=== PATIENT | female | born 1980 | race Caucasian/White ===

== ENCOUNTER 2016-12-04 15:06 | Emergency (ER) | payer MEDICARE ==
[~2016-12-04] VITALS: Ht 157.5 cm; Wt 117.9 kg
[~2016-12-04 15:06] MED LIST: ABILIFY10 MG PO; ATIVAN1 M1 PO; BUSPAR10 M1 PO; BUSPIRONE HYDRO30 MG PO; CYMBALTA60 MG PO; EFFEXOR-XR150 MG PO; ESKALITH300 M3 PO; LATUDA40 MG PO; LITHIUM CARBON450 M1 PO; NAPROSYN500 M1 PO; NEXIUM40 MG PO; PAMELOR10 MG PO; SOMA350 MG PO
[2016-12-04 15:57] VITALS: BP 120/83
--- NOTE | 2016-12-04 19:20 | NUR ---
PATIENT LEFT WITHOUT BEING SEEN BY DR. GARCIA. NO FURTHER CARE PROVIDED FOR PATIENT.
== END 2016-12-04 19:20 | disposition left against medical advice (07) ==
LOC: MED 15:06
DX: R05 Cough (principal); Z53.21 Procedure and treatment not carried out due to patient leaving prior to being seen by health care provider

== ENCOUNTER 2017-07-11 17:47 | Emergency (ER) | payer MEDICARE ==
[~2017-07-11] VITALS: Ht 160 cm; Wt 117.9 kg
[~2017-07-11 17:47] MED LIST changes: -ABILIFY10 MG PO; +ARIP10TA28 PO; -ATIVAN1 M1 PO; -BUSPAR10 M1 PO; -BUSPIRONE HYDRO30 MG PO; +CARI350T PO; -CYMBALTA60 MG PO; -EFFEXOR-XR150 MG PO; +ESK300 PO; -ESKALITH300 M3 PO; +ESOM40EC PO; -LATUDA40 MG PO; -LITHIUM CARBON450 M1 PO; +NAPR500T1 PO; -NAPROSYN500 M1 PO; -NEXIUM40 MG PO; -PAMELOR10 MG PO; -SOMA350 MG PO; +VENL150C1 PO
[2017-07-11 19:28] VITALS: BP 128/68
--- NOTE | 2017-07-11 19:46 | NUR ---
PT TAKEN TO BED 7
--- NOTE | 2017-07-11 19:46 | NUR ---
37 Y/O F W/C/O ABNORMAL VAGINAL BLEEDING, AND PELVIC PAIN X 3 DAYS. HX. BIPOLAR, ANXIETY, DEPRESSION. NO OTHER S/S OF DISTRESS NOTED AT THE MOMENT.
--- NOTE | 2017-07-11 20:18 | NUR ---
Dr. Ramon evaluating patient at bedside.
[2017-07-11 20:47] LABS: BASOPHILS # (AUTO) 0.2 K/uL (0.00-0.22); BASOPHILS % (AUTO) 1.9 % (0.0-2.0); EOSINOPHILS # (AUTO) 0.3 K/uL (0-0.4); EOSINOPHILS % (AUTO) 3.4 % (0.0-4.0); HEMATOCRIT 37.6 % (36-48); HEMOGLOBIN 12.1 g/dL (12.0-16.0); LYMPHOCYTES # (AUTO) 2.8 K/uL (2.5-16.5); LYMPHOCYTES % (AUTO) 30.8 % (20.5-51.1); MEAN CORPUSCULAR HEMOGLOBIN 28 pg (27-31); MEAN CORPUSCULAR HGB CONC 32 g/dL (33-37); MEAN CORPUSCULAR VOLUME 88 fL (80-94); MONOCYTES # (AUTO) 0.7 K/uL (0.8-1.0); MONOCYTES % (AUTO) 7.5 % (1.7-9.3); NEUTROPHILS # (AUTO) 5.1 K/uL (1.8-7.7); NEUTROPHILS % (AUTO) 56.4 % (42.2-75.2); PLATELET COUNT (AUTO) 272 K/uL (140-450); RED BLOOD CELL COUNT(AUTO) 4.27 MIL/uL (4.20-5.40); RED CELL DISTRIBUTION WIDTH 13.3 % (11.6-13.7); WHITE BLOOD COUNT (AUTO) 9.1 K/uL (4.8-10.8)
[2017-07-11] MEDS ORDERED: KETOROLAC 60 MG/2 ML VIAL IM ONE (20:50)
[2017-07-11 21:00] LABS: ANION GAP 13.3 (8-16); CARBON DIOXIDE 27.6 mmol/L (21-32); CREATININE 0.9 mg/dL (0.6-1.3); POTASSIUM 3.9 mmol/L (3.5-5.1)
[2017-07-11 21:03] LABS: PROTHROMBIN TIME 10.4 secs (10.8-13.4)
[2017-07-11 21:05] LABS: TOTAL BILIRUBIN 0.4 mg/dL (0.0-1.0)
--- NOTE | 2017-07-11 21:10 | NUR ---
PT RESTING IN BED, AWATING FOR RESULTS, NO S/S OF DISTRESS NOTED AT THE MOMENT.
[2017-07-11 21:59] VITALS: BP 116/84
--- NOTE | 2017-07-11 21:59 | NUR ---
Patient discharged with v/s stable. Written and verbal after care instructions given and explained. Patient alert, oriented and verbalized understanding of instructions. Ambulatory with steady gait. All questions addressed prior to discharge. ID band removed. Patient advised to follow up with PMD IN 2-3 DAYS OR RETURN TO ER IF CONDITION WORSENS. Rx of NAPROSYN given. Patient educated on indication of medication including possible reaction and side effects. Opportunity to ask questions provided and answered.
== END 2017-07-11 21:59 | disposition home or self-care (01) ==
LOC: MED 17:47
DX: N92.0 Excessive and frequent menstruation with regular cycle (principal); J45.909 Unspecified asthma, uncomplicated; F41.9 Anxiety disorder, unspecified; Z79.899 Other long term (current) drug therapy; Z88.8 Allergy status to other drugs, medicaments and biological substances; Z91.013 Allergy to seafood
CPT/HCPCS: 36415; 80053; 81025; 85025; 85610; 85730; 96372; 99284; J1885

== ENCOUNTER 2017-11-30 20:02 | Emergency (ER) | payer MEDICARE ==
[~2017-11-30] VITALS: Ht 160 cm; Wt 113.4 kg
[~2017-11-30 20:02] MED LIST changes: +ABI10 PO; -ARIP10TA28 PO; +NAPR-1717 PO; -NAPR500T1 PO
[2017-11-30 20:08] VITALS: BP 142/78
--- NOTE | 2017-11-30 20:20 | NUR ---
TO ER BED 4
--- NOTE | 2017-11-30 20:22 | NUR ---
PT IS A 37 Y/O FEMALE WHO PRESENTS TO THE ED C/O CHEST PAIN. PT STATES, "MY CHEST HAS BEEN HURTING SINCE MONDAY." PT REPORTS 6/10 ACHING CHEST PAIN THAT DOES NOT RADIATE. PT DENIES SOB, REPORTS DIARRHEA DENIES NAUSEA/VOMITING, REPORTS DIZZINESS. PT AAOX4, RR EVEN/UNLABORED. PT REPOSITIONED FOR COMFORT, BED IN LOWEST POSITION. ER MD DUCKWORTH SECCASSY NOTIFIED. WILL CONTINUE TO MONITOR.
[2017-11-30] MEDS ORDERED: ASPIRIN 81 MG TAB.CHEW PO ONE (21:10)
[2017-11-30 21:34] LABS: ANION GAP 8.7 (8-16); BASOPHILS # (AUTO) 0.5 K/uL (0.00-0.22); BASOPHILS % (AUTO) 4.2 % (0.0-2.0); CARBON DIOXIDE 30.6 mmol/L (21-32); CREATININE 0.9 mg/dL (0.6-1.3); EOSINOPHILS # (AUTO) 0.2 K/uL (0-0.4); EOSINOPHILS % (AUTO) 1.9 % (0.0-4.0); HEMATOCRIT 35.2 % (36-48); HEMOGLOBIN 11.8 g/dL (12.0-16.0); LYMPHOCYTES # (AUTO) 2.7 K/uL (2.5-16.5); LYMPHOCYTES % (AUTO) 24.7 % (20.5-51.1); MEAN CORPUSCULAR HEMOGLOBIN 29 pg (27-31); MEAN CORPUSCULAR HGB CONC 34 g/dL (33-37); MEAN CORPUSCULAR VOLUME 86 fL (80-94); MONOCYTES # (AUTO) 1.2 K/uL (0.8-1.0); MONOCYTES % (AUTO) 10.9 % (1.7-9.3); NEUTROPHILS # (AUTO) 6.2 K/uL (1.8-7.7); NEUTROPHILS % (AUTO) 58.3 % (42.2-75.2); PLATELET COUNT (AUTO) 263 K/uL (140-450); POTASSIUM 4.3 mmol/L (3.5-5.1); RED CELL DISTRIBUTION WIDTH 13.2 % (11.6-13.7); WHITE BLOOD COUNT (AUTO) 10.8 K/uL (4.8-10.8)
[2017-11-30 21:41] LABS: ALBUMIN 3.5 g/dL (3.4-5.0); TOTAL BILIRUBIN 0.3 mg/dL (0.0-1.0)
[2017-11-30 22:11] VITALS: BP 139/82
--- NOTE | 2017-11-30 22:11 | NUR ---
Patient discharged with v/s stable. Written and verbal after care instructions given and explained. Patient verbalized understanding. Ambulatory with steady gait. All questions addressed prior to discharge. Advised to follow up with PMD.
== END 2017-11-30 22:11 | disposition home or self-care (01) ==
LOC: MED 20:02
DX: R07.9 Chest pain, unspecified (principal); F31.9 Bipolar disorder, unspecified; J45.909 Unspecified asthma, uncomplicated; F17.210 Nicotine dependence, cigarettes, uncomplicated; Z91.013 Allergy to seafood
CPT/HCPCS: 36415; 71045; 80053; 81002; 81025; 83690; 84484; 84703; 85025; 85379; 93005; 99285

== ENCOUNTER 2017-12-08 09:54 | Emergency (ER) | payer MEDICARE ==
[~2017-12-08] VITALS: Ht 157.5 cm; Wt 119.7 kg
[~2017-12-08 09:54] MED LIST changes: -VENL150C1 PO
[2017-12-08 09:58] VITALS: BP 113/53
[2017-12-08] MEDS ORDERED: BENZTROPINE MES 1 MG TABLET (10:05)
[2017-12-08] MEDS ORDERED: CLONAZEPAM 0.5 MG TABLET (10:05)
[2017-12-08] MEDS ORDERED: BUSP10TA3 PO (10:05)
[2017-12-08] MEDS ORDERED: VENL150C1 PO (10:05)
[2017-12-08] MEDS ORDERED: LORATADINE 10 MG TABLET (10:05)
--- NOTE | 2017-12-08 10:30 | NUR ---
PT TO OF 1, UNIT UNABLE TO PROVIDE BED FOR PT. PT REPORTS INTERMITTENT CHEST PAIN X 2 WEEKS, PROGRESSIVELY GETTING WORSE. PT WAS SEEN HERE 2 WEEKS AGO AND DISCHARGED. PT REPORTS HX OF DEPRSSION AND ANXIETY WITH BIPOLAR. STATES SHE'S BEEN EXPERIENCING INCREASED STRESS WITH OLDER DTR. DENIES ANY RADIATING PAINOR NUMBNESS/TINGLING. PT SPEAKING IN FUL CLEAR SENTENCES, ALTHOUGH REPORTS SHORTNESS OF BREATH. SKI W/D/I, IN NAD. RESP EVENA ND UNALBORED, ON RA@99%. DENIES ANY FEVERS/CHILLS. SL IV INSERTED TO LEFT AC, BLOOD COLLECTED.
[2017-12-08] MEDS ORDERED: KETOROLAC 30 MG/ML VIAL IVP ONE (11:00)
[2017-12-08] MEDS ORDERED: LORazepam 2 MG/ML VIAL IVP ONE (11:00)
[2017-12-08] MEDS ORDERED: ASPIRIN 81 MG TAB.CHEW PO ONE (11:00)
[2017-12-08 11:33] LABS: BASOPHILS # (AUTO) 0.4 K/uL (0.00-0.22); BASOPHILS % (AUTO) 3.6 % (0.0-2.0); CARBON DIOXIDE 28.2 mmol/L (21-32); CREATININE 0.7 mg/dL (0.6-1.3); EOSINOPHILS # (AUTO) 0.3 K/uL (0-0.4); EOSINOPHILS % (AUTO) 2.7 % (0.0-4.0); HEMATOCRIT 35.9 % (36-48); HEMOGLOBIN 12.4 g/dL (12.0-16.0); LYMPHOCYTES # (AUTO) 2.7 K/uL (2.5-16.5); LYMPHOCYTES % (AUTO) 24.9 % (20.5-51.1); MEAN CORPUSCULAR HEMOGLOBIN 29 pg (27-31); MEAN CORPUSCULAR HGB CONC 35 g/dL (33-37); MEAN CORPUSCULAR VOLUME 85 fL (80-94); MONOCYTES # (AUTO) 1.2 K/uL (0.8-1.0); MONOCYTES % (AUTO) 11.1 % (1.7-9.3); NEUTROPHILS # (AUTO) 6.1 K/uL (1.8-7.7); NEUTROPHILS % (AUTO) 57.7 % (42.2-75.2); PLATELET COUNT (AUTO) 258 K/uL (140-450); POTASSIUM 4.2 mmol/L (3.5-5.1); RED BLOOD CELL COUNT(AUTO) 4.23 MIL/uL (4.20-5.40); RED CELL DISTRIBUTION WIDTH 13.4 % (11.6-13.7); WHITE BLOOD COUNT (AUTO) 10.7 K/uL (4.8-10.8)
[2017-12-08 11:33] LABS: BARBITURATE, URINE NEG. ng/ml (NEG <=200); BENZODIAZEPINE, URINE NEG. ng/mL (NEG <=200); CANNABINOID, URINE NEG. ng/mL (NEG <=50); COCAINE, URINE NEG. ng/mL (NEG <=300); OPIATE, URINE NEG. ng/mL (NEG <=2000); PHENCYCLIDINE SCREEN,URINE NEG. ng/mL (NEG <=25)
[2017-12-08 11:41] LABS: ALBUMIN 3.8 g/dL (3.4-5.0); TOTAL BILIRUBIN 0.5 mg/dL (0.0-1.0)
[2017-12-08 12:03] LABS: PROTHROMBIN TIME 10.5 secs (10.8-13.4)
--- NOTE | 2017-12-08 12:12 | NUR ---
pt reports feeling better, resp even and unlbaored. denies any cp or sob at this time.
[2017-12-08 12:16] LABS: D-DIMER < 100 ng/ml (0-400)
[2017-12-08 12:54] VITALS: BP 127/82
--- NOTE | 2017-12-08 12:54 | NUR ---
Patient discharged with v/s stable. Written and verbal after care instructions given and explained. Patient alert, oriented and verbalized understanding of instructions. Ambulatory with steady gait. All questions addressed prior to discharge. ID band removed. Patient advised to follow up with PMD. Rx of VISTARIL given. Patient educated on indication of medication including possible reaction and side effects. Opportunity to ask questions provided and answered.
== END 2017-12-08 12:54 | disposition home or self-care (01) ==
LOC: MED 09:54
DX: R00.2 Palpitations (principal); R07.89 Other chest pain; F41.9 Anxiety disorder, unspecified; F31.9 Bipolar disorder, unspecified; J45.909 Unspecified asthma, uncomplicated; Z79.899 Other long term (current) drug therapy; Z88.8 Allergy status to other drugs, medicaments and biological substances; Z91.013 Allergy to seafood
CPT/HCPCS: 36415; 71046; 80053; 80305; 81002; 81025; 83880; 84484; 85025; 85379; 85610; 85730; 93005; 96374; 96375; 99285; J1885; J2060

== ENCOUNTER 2018-01-30 20:06 | Emergency (ER) | payer MEDICARE ==
[~2018-01-30] VITALS: Ht 160 cm; Wt 120.2 kg
[~2018-01-30 20:06] MED LIST changes: +BENZTROPINE MES 1 MG TABLET; +BUSP10TA3 PO; +CLONAZEPAM 0.5 MG TABLET; +LORATADINE 10 MG TABLET; +VENL150C1 PO
[2018-01-30 20:20] VITALS: BP 134/90
--- NOTE | 2018-01-30 20:24 | NUR ---
TO LOBBY A/W BED, AMB, STABLE, ERMD NOTED
--- NOTE | 2018-01-30 21:37 | NUR ---
PATIENT AMBULATED TO ER CHAIR C
[2018-01-30] MEDS ORDERED: KETOROLAC 60 MG/2 ML VIAL IM ONE (22:20)
--- NOTE | 2018-01-30 22:22 | NUR ---
37Y/F PT. PRESESNT TO ED WITH C/O LOWER BACK PAIN X 3 DAYS. NO N/V/D. HX. CVA, TIA. AAO X4, AMBULATORY WITH STEDAY GAIT. RESPIRATIONS ROOM AIR, EVEN AND UNLABORED. C/O LOWER BACK PAIN, POSITION PT. FOR COMFORT. C/O PAIN 08/15. ABDOMEN SOFT, NON TENDER, ACTIVE BS X4. VSS, ER MD MADE AWARE OF PT. STATUS.
--- NOTE | 2018-01-30 23:14 | NUR ---
Patient discharged with v/s stable. Written and verbal after care instructions given and explained. Patient alert, oriented and verbalized understanding of instructions. Ambulatory with steady gait. All questions addressed prior to discharge. ID band removed. Patient advised to follow up with PMD. Rx of NAPROSYN 500 MG given. Patient educated on indication of medication including possible reaction and side effects. Opportunity to ask questions provided and answered.
[2018-01-31 03:25] VITALS: BP 125/82
== END 2018-01-30 23:14 | disposition home or self-care (01) ==
LOC: MED 20:06
DX: S33.5XXA Sprain of ligaments of lumbar spine, initial encounter (principal); J45.909 Unspecified asthma, uncomplicated; Z91.013 Allergy to seafood; X58.XXXA Exposure to other specified factors, initial encounter; Y93.89 Activity, other specified; Y92.89 Other specified places as the place of occurrence of the external cause; Y99.8 Other external cause status
CPT/HCPCS: 72110; 96372; 99284; J1885; 81002; 81025

== ENCOUNTER 2018-07-17 09:55 | Emergency (ER) | payer MEDICARE ==
[~2018-07-17] VITALS: Ht 160 cm; Wt 113.4 kg
[2018-07-17 10:18] VITALS: BP 139/84
--- NOTE | 2018-07-17 10:30 | NUR ---
PT. CAME INTO THE ED DUE TO VOMITING AND DIAHRRHEA X 2 WEEKS. PT. STATES " I HAVE BEEN VOMITING EVERY TIME AFTER I EAT FOR ABOUT 2 WEEKS AND ALSO SOME DIAHRRHEA X 2 WEEKS JUST LOOSE STOOL". PT. DENIES ANY FEVERS , DENIES ANY PAIN AT THIS TIME. COMPLAINS OF NON PRODUCTIVE COUGH. DENIES BLOOD IN FECES. DENIES BLOOD IN VOMIT. ABD SOFT AND NON TENDER UPON PALPATION. WILL CONTINUE TO MONITOR. NO NAUSEA AT THIS TIME. SAFETY PRECAUTIONS IMPLEMENTED.
[2018-07-17] MEDS ORDERED: methylPREDNISolone SS 125 MG/2 ML VIAL IVP ONE (11:05)
[2018-07-17] MEDS ORDERED: NACL 0.9% 1,000 ML IV ONE (11:05)
[2018-07-17] MEDS ORDERED: ALBUTEROL 0.083% 2.5 MG/3 ML NEBU INH ONE (11:05)
[2018-07-17] MEDS ORDERED: IPRATROPIUM 0.02% 0.5 MG/2.5 ML NEBU INH ONE (11:05)
--- NOTE | 2018-07-17 11:16 | NUR ---
RT AT BEDSIDE AT THIS TIME. RR EVEN AND UNLABORED. WILL CONTINUE TO MONITOR.
[2018-07-17 11:20] LABS: BASOPHILS % (AUTO) 0.4 % (0.0-2.0); EOSINOPHILS # (AUTO) 0.4 K/uL (0-0.4); EOSINOPHILS % (AUTO) 4.7 % (0.0-4.0); HEMATOCRIT 39.5 % (36-48); HEMOGLOBIN 12.7 g/dL (12.0-16.0); LYMPHOCYTES # (AUTO) 2.4 K/uL (2.5-16.5); LYMPHOCYTES % (AUTO) 29.6 % (20.5-51.1); MEAN CORPUSCULAR HEMOGLOBIN 27 pg (27-31); MEAN CORPUSCULAR HGB CONC 32 g/dL (33-37); MEAN CORPUSCULAR VOLUME 83.9 fL (80-94); MONOCYTES # (AUTO) 0.7 K/uL (0.8-1.0); MONOCYTES % (AUTO) 8.6 % (1.7-9.3); NEUTROPHILS # (AUTO) 4.7 K/uL (1.8-7.7); NEUTROPHILS % (AUTO) 56.7 % (42.2-75.2); PLATELET COUNT (AUTO) 287 K/uL (140-450); RED CELL DISTRIBUTION WIDTH 14.9 % (11.6-13.7); WHITE BLOOD COUNT (AUTO) 8.2 K/uL (4.8-10.8)
[2018-07-17 11:42] LABS: ALBUMIN 4.1 g/dL (3.4-5.0); CARBON DIOXIDE 30.9 mmol/L (21-32); CREATININE 0.8 mg/dL (0.6-1.3); POTASSIUM 3.9 mmol/L (3.5-5.1); THYROID STIMULATING HORMONE 1.13 uIU/mL (0.34-3.74); TOTAL BILIRUBIN 0.4 mg/dL (0.0-1.0)
--- NOTE | 2018-07-17 12:10 | NUR ---
PT. RESTING COMFORTABLY IN BED, RR EVEN AND UNLABORED. VSS WILL CONTINUE TO MONITOR.
[2018-07-17 12:18] VITALS: BP 109/57
--- NOTE | 2018-07-17 12:18 | NUR ---
Patient discharged with v/s stable. Written and verbal after care instructions given and explained. Patient alert, oriented and verbalized understanding of instructions. Ambulatory with steady gait. All questions addressed prior to discharge. ID band removed. Patient advised to follow up with PMD. Rx of ALBUTEROL, PREDNISONE , LOMOTIL, TESSALON PERLES given. Patient educated on indication of medication including possible reaction and side effects. Opportunity to ask questions provided and answered.
== END 2018-07-17 12:18 | disposition home or self-care (01) ==
LOC: MED 09:55
DX: J40 Bronchitis, not specified as acute or chronic (principal); J98.01 Acute bronchospasm; R11.2 Nausea with vomiting, unspecified; R19.7 Diarrhea, unspecified; I63.9 Cerebral infarction, unspecified; F17.210 Nicotine dependence, cigarettes, uncomplicated; Z88.8 Allergy status to other drugs, medicaments and biological substances; Z79.899 Other long term (current) drug therapy; Z76.0 Encounter for issue of repeat prescription
CPT/HCPCS: 36415; 80053; 81025; 83690; 84443; 85025; 94640; 94760; 96361; 96374; 99284; J2930; J7030; J7613; J7644; 99285

== ENCOUNTER 2018-08-07 00:50 | Emergency (ER) | payer MEDICARE ==
[~2018-08-07] VITALS: Ht 160 cm; Wt 117.9 kg
[2018-08-07 01:00] VITALS: BP 134/77
--- NOTE | 2018-08-07 01:04 | NUR ---
TO LOBBY A/W BED, IGGY STERLNIG NOTED
--- NOTE | 2018-08-07 02:41 | NUR ---
PATIENT PRESENTS TO ED WITH C/O RT ARM PAIN AND SWELLING. NO INJURY. PT SKIN IS PINK/WARM/DRY; AAOX4 WITH EVEN AND STEADY GAIT; LUNGS CLEAR BL; HR EVEN AND REGULAR; PATIENT STATES PAIN OF 8/10 AT THIS TIME; PATIENT POSITIONED FOR COMFORT; HOB ELEVATED; BEDRAILS UP X2; BED DOWN.
--- NOTE | 2018-08-07 04:43 | NUR ---
Dr. Sadler evaluating patient at bedside.
[2018-08-07] MEDS ORDERED: NACL 0.9% 1,000 ML IV ONE (04:55)
[2018-08-07] MEDS ORDERED: KETOROLAC 30 MG/ML VIAL IVP ONE (04:55)
--- NOTE | 2018-08-07 06:01 | NUR ---
Ultrasound at bedside.
[2018-08-07 06:04] LABS: BASOPHILS # (AUTO) 0.1 K/uL (0.00-0.22); EOSINOPHILS # (AUTO) 0.3 K/uL (0-0.4); EOSINOPHILS % (AUTO) 3.5 % (0.0-4.0); HEMATOCRIT 37.4 % (36-48); HEMOGLOBIN 12.2 g/dL (12.0-16.0); LYMPHOCYTES % (AUTO) 35.9 % (20.5-51.1); MEAN CORPUSCULAR HEMOGLOBIN 28 pg (27-31); MEAN CORPUSCULAR HGB CONC 33 g/dL (33-37); MEAN CORPUSCULAR VOLUME 84.5 fL (80-94); MONOCYTES # (AUTO) 0.8 K/uL (0.8-1.0); NEUTROPHILS # (AUTO) 4.1 K/uL (1.8-7.7); NEUTROPHILS % (AUTO) 49.6 % (42.2-75.2); PLATELET COUNT (AUTO) 261 K/uL (140-450); RED BLOOD CELL COUNT(AUTO) 4.43 MIL/uL (4.20-5.40); RED CELL DISTRIBUTION WIDTH 15.8 % (11.6-13.7); WHITE BLOOD COUNT (AUTO) 8.2 K/uL (4.8-10.8)
[2018-08-07 06:32] LABS: ANION GAP 9.7 (8-16); CARBON DIOXIDE 27.1 mmol/L (21-32); CREATININE 0.8 mg/dL (0.6-1.3); POTASSIUM 3.8 mmol/L (3.5-5.1)
[2018-08-07 06:38] LABS: ALBUMIN 3.8 g/dL (3.4-5.0); TOTAL BILIRUBIN 0.4 mg/dL (0.0-1.0)
--- NOTE | 2018-08-07 07:17 | NUR ---
received report from sammie lindsey for continuity of care.
--- NOTE | 2018-08-07 07:24 | NUR ---
Bradly chan in [facility] - 08/07/18 at 0812 by KELLI lab called for ua results
--- NOTE | 2018-08-07 07:25 | NUR ---
pt resting in no appearent distress, rr even/unlabored. family at bedside. will continue to monitor
--- NOTE | 2018-08-07 07:34 | NUR ---
lab called for ua results
[2018-08-07 07:54] LABS: APPEARANCE,URINE CLEAR (CLEAR); BILIRUBIN,URINE NEGATIVE (NEGATIVE); BLOOD, URINE NEGATIVE (NEGATIVE); COLOR,URINE YELLOW (YELLOW); LEUKOCYTE ESTERASE ,URINE NEGATIVE (NEGATIVE); NITRITE, URINE NEGATIVE (NEGATIVE); PROTHROMBIN TIME 9.4 secs (10.8-13.4); UGLUCOSE NEGATIVE (NEGATIVE)
[2018-08-07 08:05] LABS: RBC,URINE NONE SEEN /HPF (0-5); WBC,URINE 0-5 (RARE) /HPF (0-5)
[2018-08-07 08:50] VITALS: BP 132/78
== END 2018-08-07 08:50 | disposition home or self-care (01) ==
LOC: MED 00:50
DX: M62.838 Other muscle spasm (principal); Z88.8 Allergy status to other drugs, medicaments and biological substances; Z79.899 Other long term (current) drug therapy; Z91.013 Allergy to seafood
CPT/HCPCS: 36415; 73080; 73090; 76881; 80053; 80178; 81001; 81025; 82550; 85025; 85610; 85730; 93971; 96374; 99285; J1885; Q0092; J7030

== ENCOUNTER 2018-08-13 23:00 | Emergency (ER) | payer MEDICARE ==
[~2018-08-13] VITALS: Ht 160 cm; Wt 115.7 kg
[2018-08-13 23:05] VITALS: BP 132/84
--- NOTE | 2018-08-13 23:05 | NUR ---
PT PRESENTS TO ED WITH CHEST PAIN AND SOB X2 HRS. PT STAETS CHEST PAIN EXACERBATED WITH EXERCISE/DEEP BREATHING. LUNGS CLEAR THROUGHOUT. HR EVEN, REGULAR, NSR. 02SAT 96% AT RA. HOB ELEVATED. VSS. PT STATES SOB AND DSYPNEA. POSITIONED IN BED FOR COMFORT. ER MD AWARE. CONTINUE TO MONITOR.
--- NOTE | 2018-08-13 23:05 | NUR ---
TO BED # 4 AMBULATORY, REPORT GIVEN TO BREANNE CLARK
[2018-08-14] MEDS ORDERED: IPRATROPIUM 0.02% 0.5 MG/2.5 ML NEBU INH ONE (00:05)
[2018-08-14] MEDS ORDERED: ALBUTEROL 0.083% 2.5 MG/3 ML NEBU INH ONE (00:05)
[2018-08-14] MEDS ORDERED: ONDANSETRON 4 MG/2 ML VIAL IVP ONE (00:40)
[2018-08-14] MEDS ORDERED: ASPIRIN 325 MG TAB PO ONE (00:40)
[2018-08-14] MEDS ORDERED: NITROGLYCERIN 0.4 MG TAB SL ONE (00:40)
[2018-08-14] MEDS ORDERED: MORPHINE SULFATE 2 MG/ML SYR IVP ONE (00:40)
[2018-08-14 01:11] LABS: BASOPHILS % (AUTO) 0.4 % (0.0-2.0); EOSINOPHILS # (AUTO) 0.3 K/uL (0-0.4); EOSINOPHILS % (AUTO) 3.3 % (0.0-4.0); HEMATOCRIT 35.7 % (36-48); HEMOGLOBIN 11.7 g/dL (12.0-16.0); LYMPHOCYTES # (AUTO) 3.1 K/uL (2.5-16.5); LYMPHOCYTES % (AUTO) 33.2 % (20.5-51.1); MEAN CORPUSCULAR HEMOGLOBIN 28 pg (27-31); MEAN CORPUSCULAR HGB CONC 33 g/dL (33-37); MEAN CORPUSCULAR VOLUME 84.2 fL (80-94); MONOCYTES % (AUTO) 10.2 % (1.7-9.3); NEUTROPHILS % (AUTO) 52.9 % (42.2-75.2); PLATELET COUNT (AUTO) 278 K/uL (140-450); RED BLOOD CELL COUNT(AUTO) 4.24 MIL/uL (4.20-5.40); RED CELL DISTRIBUTION WIDTH 15.7 % (11.6-13.7); WHITE BLOOD COUNT (AUTO) 9.4 K/uL (4.8-10.8)
[2018-08-14 01:30] LABS: PROTHROMBIN TIME 9.8 secs (10.8-13.4)
[2018-08-14 01:37] LABS: ALBUMIN 3.6 g/dL (3.4-5.0); ANION GAP 4.8 (8-16); CARBON DIOXIDE 26.9 mmol/L (21-32); CREATININE 0.8 mg/dL (0.6-1.3); POTASSIUM 3.7 mmol/L (3.5-5.1); TOTAL BILIRUBIN 0.2 mg/dL (0.0-1.0)
[2018-08-14 01:40] LABS: D-DIMER < 100 ng/ml (0-400)
[2018-08-14 02:26] VITALS: BP 132/84
--- NOTE | 2018-08-14 02:26 | NUR ---
Patient discharged with v/s stable. Written and verbal after care instructions given and explained. Patient alert, oriented and verbalized understanding of instructions. Ambulatory with steady gait. All questions addressed prior to discharge. ID band removed. Patient advised to follow up with PMD. Rx of Reglan, Ativan, Aspirin given. Patient educated on indication of medication including possible reaction and side effects. Opportunity to ask questions provided and answered.
== END 2018-08-14 02:26 | disposition home or self-care (01) ==
LOC: MED 23:00
DX: F41.9 Anxiety disorder, unspecified (principal); R07.89 Other chest pain; R06.02 Shortness of breath; J45.909 Unspecified asthma, uncomplicated; Z91.013 Allergy to seafood; Z79.899 Other long term (current) drug therapy; Z88.8 Allergy status to other drugs, medicaments and biological substances
CPT/HCPCS: 36415; 71045; 80053; 83880; 84484; 85025; 85379; 85610; 85730; 93005; 96374; 96375; 99285; J2270; J2405; Q0092

== ENCOUNTER 2018-11-01 21:19 | Emergency (ER) | payer MEDICARE ==
[~2018-11-01] VITALS: Ht 160 cm; Wt 118.8 kg
[2018-11-01 21:36] VITALS: BP 143/81
--- NOTE | 2018-11-01 21:48 | NUR ---
PT AMBULATED TO BED 4.
--- NOTE | 2018-11-01 22:03 | NUR ---
PT PRESENTS TO ED WITH C/O BILATERAL LEG RASH X 12 DAYS. PT DENIES NEW FOOD/SOAP/DETERGENTS. RED, NON-RAISED RASHED NOTED TO BILATERAL LEGS. PT DENIES ANY DISCHARGE. PT DENIES N/V/FEVER. PT PLACED IN BED, PENDING MD BARNEY.
[2018-11-01 23:30] LABS: BASOPHILS % (AUTO) 0.3 % (0.0-2.0); EOSINOPHILS # (AUTO) 0.3 K/uL (0-0.4); EOSINOPHILS % (AUTO) 2.5 % (0.0-4.0); HEMATOCRIT 37.3 % (36-48); HEMOGLOBIN 11.7 g/dL (12.0-16.0); LYMPHOCYTES # (AUTO) 3.3 K/uL (2.5-16.5); LYMPHOCYTES % (AUTO) 29.3 % (20.5-51.1); MEAN CORPUSCULAR HEMOGLOBIN 27 pg (27-31); MEAN CORPUSCULAR HGB CONC 32 g/dL (33-37); MEAN CORPUSCULAR VOLUME 85.5 fL (80-94); MONOCYTES # (AUTO) 1.2 K/uL (0.8-1.0); MONOCYTES % (AUTO) 10.3 % (1.7-9.3); NEUTROPHILS # (AUTO) 6.4 K/uL (1.8-7.7); NEUTROPHILS % (AUTO) 57.6 % (42.2-75.2); PLATELET COUNT (AUTO) 259 K/uL (140-450); RED BLOOD CELL COUNT(AUTO) 4.36 MIL/uL (4.20-5.40); RED CELL DISTRIBUTION WIDTH 15.7 % (11.6-13.7); WHITE BLOOD COUNT (AUTO) 11.2 K/uL (4.8-10.8)
[2018-11-01 23:36] LABS: ANION GAP 11.2 (8-16); CARBON DIOXIDE 27.6 mmol/L (21-32); CREATININE 0.8 mg/dL (0.6-1.3); POTASSIUM 3.8 mmol/L (3.5-5.1)
[2018-11-01 23:50] VITALS: BP 140/85
--- NOTE | 2018-11-01 23:50 | NUR ---
Patient discharged with v/s stable. Written and verbal after care instructions given and explained. Patient alert, oriented and verbalized understanding of instructions. Ambulatory with steady gait. All questions addressed prior to discharge. ID band removed. Patient advised to follow up with PMD. Rx of Prednisone 50mg and Keflex 500mg given. Patient educated on indication of medication including possible reaction and side effects. Opportunity to ask questions provided and answered.
== END 2018-11-01 23:50 | disposition home or self-care (01) ==
LOC: MED 21:19
DX: R21 Rash and other nonspecific skin eruption (principal); M79.604 Pain in right leg; M79.605 Pain in left leg; J45.909 Unspecified asthma, uncomplicated; Z90.89 Acquired absence of other organs; Z91.013 Allergy to seafood; Z88.8 Allergy status to other drugs, medicaments and biological substances; Z79.899 Other long term (current) drug therapy
CPT/HCPCS: 36415; 80048; 85025; 99283

== ENCOUNTER 2018-11-11 12:32 | Emergency (ER) | payer BC, MEDICARE ==
[~2018-11-11] VITALS: Ht 160 cm; Wt 118.0 kg
[2018-11-11 12:47] VITALS: BP 116/65
--- NOTE | 2018-11-11 12:52 | NUR ---
PT AMBULATES TO BED 8
--- NOTE | 2018-11-11 13:42 | NUR ---
C/O COUGH, CP WHEN COUGHING OR BREATHING, SOB AND LOSS OF APPETITE SINCE MONDAY. VSS; PATIENT POSITIONED FOR COMFORT; HOB ELEVATED; BEDRAILS UP X2; BED DOWN. ER MD MADE AWARE OF PT STATUS.
[2018-11-11 14:42] VITALS: BP 116/65
--- NOTE | 2018-11-11 14:42 | NUR ---
Patient discharged with v/s stable. Written and verbal after care instructions given and explained. Patient alert, oriented and verbalized understanding of instructions. Ambulatory with steady gait. All questions addressed prior to discharge. ID band removed. Patient advised to follow up with PMD. Rx of TAMIFLU AND PROMETHAZINE given. Patient educated on indication of medication including possible reaction and side effects. Opportunity to ask questions provided and answered.
== END 2018-11-11 14:42 | disposition home or self-care (01) ==
LOC: MED 12:32
DX: J06.9 Acute upper respiratory infection, unspecified (principal); R19.7 Diarrhea, unspecified; J45.909 Unspecified asthma, uncomplicated; Z79.1 Long term (current) use of non-steroidal anti-inflammatories (NSAID); Z79.899 Other long term (current) drug therapy; Z88.8 Allergy status to other drugs, medicaments and biological substances
CPT/HCPCS: 36415; 87804; 99283

== ENCOUNTER 2019-05-03 00:03 | Emergency (ER) | payer BC ==
[~2019-05-03] VITALS: Ht 160 cm; Wt 118.8 kg
[2019-05-03 00:05] VITALS: BP 110/75
--- NOTE | 2019-05-03 00:07 | NUR ---
TO LOBBY A/W BED AMBULATORY
--- NOTE | 2019-05-03 00:57 | NUR ---
Pt taken to bed 12.
[2019-05-03] MEDS ORDERED: BENZ-248 PO (01:07)
--- NOTE | 2019-05-03 01:08 | NUR ---
38/F presents to ED with complaints of anxiety since 0 tonight. Patient appears calm and relaxed. Respirations even and unlabored. Pt denies SOB and chest pain. AOX4, clear speech. NAD noted.
[2019-05-03 01:52] VITALS: BP 107/62
== END 2019-05-03 01:52 | disposition home or self-care (01) ==
LOC: MED 00:03
DX: R06.4 Hyperventilation (principal); F41.9 Anxiety disorder, unspecified; R42 Dizziness and giddiness; J45.909 Unspecified asthma, uncomplicated; F32.9 Major depressive disorder, single episode, unspecified; Z90.49 Acquired absence of other specified parts of digestive tract; Z98.890 Other specified postprocedural states; Z79.899 Other long term (current) drug therapy; Z91.013 Allergy to seafood; Z88.8 Allergy status to other drugs, medicaments and biological substances
CPT/HCPCS: 99284

== ENCOUNTER 2019-05-24 13:05 | Emergency (ER) | payer BC ==
[~2019-05-24] VITALS: Ht 160 cm; Wt 117.0 kg
[~2019-05-24 13:05] MED LIST changes: +BENZ-248 PO; -BENZTROPINE MES 1 MG TABLET; -CARI350T PO; -CLONAZEPAM 0.5 MG TABLET; -ESOM40EC PO; -LORATADINE 10 MG TABLET; -NAPR-1717 PO
[2019-05-24 13:20] VITALS: BP 133/58
--- NOTE | 2019-05-24 13:20 | NUR ---
PT AMBULATED TO ED BED 08
[2019-05-24] MEDS ORDERED: ARIP15TA1 PO (13:29)
[2019-05-24] MEDS ORDERED: BUS5 PO (13:29)
[2019-05-24] MEDS ORDERED: LITH600C PO (13:29)
--- NOTE | 2019-05-24 13:42 | NUR ---
PT PRESENTS TO ED FOR EVALUATING OF LOWER BACK PAIN 3 DAYS. DENIES N/V/D NOR INJURY. AAO X4, GCS 15, RESPIRATIONS EVEN AND UNLABORED, BL LUNG CLEAR. SKIN WARM/PINK/DRY, +PMSC. ABDOMEN SOFT, NON DISTENDED, ACTIVE BOWEL SOUND X4. VSS, NO ACUTE DISTRESS AT THIS TIME. ED PROVIDER MADE AWARE OF PT STATUS. WILL CONTINUE TO MONITOR
[2019-05-24] MEDS ORDERED: KETOROLAC 15 MG/ML VIAL IM ONE (14:40)
[2019-05-24 15:29] LABS: APPEARANCE,URINE CLEAR (CLEAR); BILIRUBIN,URINE NEGATIVE (NEGATIVE); BLOOD, URINE NEGATIVE (NEGATIVE); COLOR,URINE YELLOW (YELLOW); LEUKOCYTE ESTERASE ,URINE NEGATIVE (NEGATIVE); NITRITE, URINE NEGATIVE (NEGATIVE); PH,URINE 6.5 (5.0-9.0); UGLUCOSE NEGATIVE (NEGATIVE)
--- NOTE | 2019-05-24 15:30 | NUR ---
PT SLEEPING, VSS, NO ACUTE DISTRESS AT THIS TIME. WILL CONTINUE TO MONITOR
[2019-05-24 16:20] VITALS: BP 133/77
== END 2019-05-24 16:20 | disposition home or self-care (01) ==
LOC: MED 13:05
DX: M54.41 Lumbago with sciatica, right side (principal); M54.42 Lumbago with sciatica, left side; J45.909 Unspecified asthma, uncomplicated; Z79.899 Other long term (current) drug therapy; Z88.8 Allergy status to other drugs, medicaments and biological substances; Z91.013 Allergy to seafood
CPT/HCPCS: 81003; 81025; 96372; 99283; J1885